=== PATIENT | male | born 1950 | race Two or more races ===

== ENCOUNTER 2021-03-15 12:35 | Emergency (ER) | payer OTHER ==
[~2021-03-15] VITALS: Ht 180.3 cm; Wt 78.9 kg
[2021-03-15 13:20] VITALS: BP 147/71
[2021-03-15] MEDS ORDERED: ELIMC TP (13:32)
[2021-03-15] MEDS ORDERED: ATA25 PO (13:32)
[2021-03-15] MEDS ORDERED: CLOB0.0525 TP (13:32)
--- NOTE | 2021-03-15 14:05 | NUR ---
NO NURSING INTERVENTIONS PERFORMED
--- NOTE | 2021-03-15 14:06 | NUR ---
Patient discharged with v/s stable. Written and verbal after care instructions given and explained. Patient alert, oriented and verbalized understanding of instructions. Ambulatory with steady gait. All questions addressed prior to discharge. ID band removed. Patient advised to follow up with PMD. Rx of Atarax, Clobetasol Propionate, Permethrin given. Patient educated on indication of medication including possible reaction and side effects. Opportunity to ask questions provided and answered.
== END 2021-03-15 14:06 | disposition home or self-care (01) ==
LOC: MED 12:35
DX: R21 Rash and other nonspecific skin eruption (principal); L29.9 Pruritus, unspecified
CPT/HCPCS: 99283